=== PATIENT | female | born 1965 | race Caucasian/White ===

== ENCOUNTER 2017-10-18 15:43 | Emergency (ER) | payer OTHER ==
[~2017-10-18] VITALS: Ht 165.1 cm; Wt 65.8 kg
[~2017-10-18 15:43] MED LIST: ADDERALL 10 MG10 MG PO; CELEXA40 MG PO; HYDROCODONE-AC120 ML PO; IBUPROFEN 800800 M1 PO; LAMICTAL XR300 MG PO; LEVAQUIN 500 M500 M4 PO; MULTIVITAMINS1 EAC7 PO; PROAIR HFA8.5 GM IH; TRAZODONE 150150 M1 PO; VYVANSE60 MG PO
[2017-10-18] MEDS ORDERED: VITAMIN D3400 UNIT PO (15:52)
[2017-10-18] MEDS ORDERED: EPIPEN 2-P0.3 MG/0.3 IM (17:29)
[2017-10-18 20:43] VITALS: BP 127/78
== END 2017-10-18 20:44 | disposition home or self-care (01) ==
LOC: ER 15:43
DX: T63.441A Toxic effect of venom of bees, accidental (unintentional), initial encounter (principal); Z87.892 Personal history of anaphylaxis; Z88.5 Allergy status to narcotic agent; Z88.6 Allergy status to analgesic agent

== ENCOUNTER 2018-04-03 22:16 | Emergency (ER) | payer OTHER ==
[~2018-04-03] VITALS: Ht 165.1 cm; Wt 65.8 kg
[~2018-04-03 22:16] MED LIST changes: +EPIPEN 2-P0.3 MG/0.3 IM; +VITAMIN D3400 UNIT PO
[2018-04-04] MEDS ORDERED: ZOFRAN ODT4 MG PO (00:27)
[2018-04-04] MEDS ORDERED: VALIUM5 MG PO (00:27)
[2018-04-04] MEDS ORDERED: MOBIC15 MG PO (00:27)
[2018-04-04 00:53] VITALS: BP 117/77
== END 2018-04-04 00:56 | disposition home or self-care (01) ==
LOC: ER 22:16
DX: S16.1XXA Strain of muscle, fascia and tendon at neck level, initial encounter (principal); S09.90XA Unspecified injury of head, initial encounter; Z88.6 Allergy status to analgesic agent; W22.8XXA Striking against or struck by other objects, initial encounter; Y93.89 Activity, other specified; Y92.89 Other specified places as the place of occurrence of the external cause; Y99.8 Other external cause status

== ENCOUNTER → 2019-07-09 | Outpatient (CLI) | payer OTHER ==
[~2019-07-09] MED LIST changes: +MOBIC15 MG PO; +VALIUM5 MG PO; +ZOFRAN ODT4 MG PO
== END ==
LOC: BC 11:09
DX: Z12.31 Encounter for screening mammogram for malignant neoplasm of breast (principal)

== ENCOUNTER → 2019-07-18 | Outpatient (CLI) | payer OTHER | LOC: NUC 11:02 | DX: M85.88 Other specified disorders of bone density and structure, other site (principal); Z78.0 Asymptomatic menopausal state; Z87.311 Personal history of (healed) other pathological fracture ==